=== PATIENT | female | born 1960 | race Caucasian/White ===

== ENCOUNTER 2017-01-19 13:21 | Emergency (ER) | payer SELFPAY ==
[~2017-01-19] VITALS: Ht 157.5 cm; Wt 78.2 kg
[2017-01-19 13:47] VITALS: BP 139/85
[2017-01-19] MEDS ORDERED: NAPROSYN500 MG PO (14:48)
[2017-01-19] MEDS ORDERED: FLEXERIL10 MG PO (14:48)
[2017-01-19] MEDS ORDERED: ZOFRAN ODT4 MG PO (14:48)
== END 2017-01-19 15:05 | disposition home or self-care (01) ==
LOC: EME 13:21 → EDBD 13:21 → EME 15:05
DX: S06.0X0A Concussion without loss of consciousness, initial encounter (principal); S00.93XA Contusion of unspecified part of head, initial encounter; W20.8XXA Other cause of strike by thrown, projected or falling object, initial encounter; Y92.59 Other trade areas as the place of occurrence of the external cause; E78.5 Hyperlipidemia, unspecified; E07.9 Disorder of thyroid, unspecified; F17.200 Nicotine dependence, unspecified, uncomplicated
CPT/HCPCS: 99281; 99283